=== PATIENT | male | born 1980 | race African-American/Black ===

== ENCOUNTER 2017-01-16 20:00 | Inpatient (IN) | payer OTHER ==
[~2017-01-16] VITALS: Ht 167.6 cm; Wt 82.8 kg
[~2017-01-16 20:00] MED LIST: ENAL2.5 PO; FURO20 PO; HYDR-2768 PO; INSU100V3 SC; MOTR200T PO; NOVORP2 SQ
[2017-01-16] MEDS ORDERED: SODIUM CHLOR 0.9% 1000 ML INJ 1,000 ML IV SCH ×2 (20:07→21:33)
[2017-01-16 20:08] VITALS: BP 190/89; PULSE 61; RESP 18; TEMP 98.6; O2SAT 100
[2017-01-16] MEDS ORDERED: ONDANSETRON HCL 4 MG/2 ML VIAL IVP ONE (20:15)
[2017-01-16] MEDS ORDERED: MORPHINE SULFATE 8 MG/ML INJ IV PUSH ONE (20:15)
[2017-01-16] MEDS ORDERED: SODIUM CHLOR 0.9% 1000 ML INJ 1,000 ML IV ONE ×2 (20:15→23:15)
[2017-01-16] MEDS ORDERED: SODIUM CHLORIDE 0.9% FLUSH 10 ML FLUSH IV FLUSH PRN ×2 (20:15→23:15)
[2017-01-16] MEDS ORDERED: METOCLOPRAMIDE HCL 10 MG/2 ML VIAL IV PUSH ONE (20:15)
--- NOTE | 2017-01-16 20:17 | PD ---
HPI Chief Complaint: GI Complaint Time Seen by Provider: 20:03 Travel History International Travel<30 days: No Contact w/Intl Traveler<30days: No Traveled to known affect area: No History of Present Illness HPI Patient is a 36-year-old male with a history of diabetes presents emergency Department with a 4-5 day history of nausea vomiting left lower quadrant abdominal pain. Patient states last emesis after he was found to be in DKA. Sugar was 300 according to EMS. Patient was given Phenergan approximately 6 hours ago at the [facility] [place] [facility], he did receive Zofran 4 mg IV in route. Both interventions were not helpful.. On arrival he is very diaphoretic and actively retching. There is some blood tinge in the emesis. Denies any fever denies any chest pain or shortness of breath. Patient incarcerated for 14 years. He adamantly denies ingesting anything. Symptoms are severe. Gradually worsening. PFSH Past Medical History Depression: Yes Diabetes: Yes Hypertension: Yes Social History Alcohol Use: No Tobacco Use: No Substance Use: No Allergies-Medications (Allergen,Severity, Reaction): Coded Allergies: Vasotec (Verified Allergy, Intermediate, DRY COUGH, 01/16/17) Reported Meds & Prescriptions Reported Meds & Active Scripts Active Ibuprofen 200 Mg Tab 400 Mg PO TID 7 Days Reported Humulin N U-100 Pen (Insulin Human Nph) Inj 20 SC HS Humulin N U-100 Pen (Insulin Human Nph) Inj 25 SC DAILY@0600 Novolin R (Insulin Human Regular) 100 Units/Ml Inj 0 SQ DIRECTED Lasix 20 Mg Tab (Furosemide) 20 Mg Tab 20 Mg PO DAILY Hctz (Hydrochlorothiazide) 25 Mg Tab 25 Mg PO DAILY Enalapril Maleate 2.5 Mg Tab 2.5 Mg PO DAILY Review of Systems Except as stated in HPI: all other systems reviewed are Neg Physical Exam Narrative GENERAL: Well-developed well-nourished, diaphoretic, actively retching. SKIN: Focused skin assessment warm/dry. HEAD: Atraumatic. Normocephalic. EYES: Pupils equal and round. No scleral icterus. No injection or drainage. ENT: No nasal bleeding or discharge. Mucous membranes pink and moist. NECK: Trachea midline. No JVD. CARDIOVASCULAR: Regular rate and rhythm. No murmur appreciated. RESPIRATORY: No accessory muscle use. Clear to auscultation. Breath sounds equal bilaterally. GASTROINTESTINAL: Abdomen soft, moderately tender in the left lower quadrant no rebound no percussive tenderness., nondistended. Hepatic and splenic margins not palpable. Abdomen is soft. MUSCULOSKELETAL: No obvious deformities. No clubbing. No cyanosis. No edema. NEUROLOGICAL: Awake and alert. No obvious cranial nerve deficits. Motor grossly within normal limits. Normal speech. PSYCHIATRIC: Appropriate mood and affect; insight and judgment normal. Data Data Last Documented VS Vital Signs Date Time Temp Pulse Resp B/P Pulse Ox O2 Delivery O2 Flow Rate FiO2 01/16/17 22:20 90 16 169/79 99 Room Air 01/16/17 20:08 98.6 Orders Complete Blood Count With Diff (01/16/17 20:07) Comprehensive Metabolic Panel (01/16/17 20:07) Lactic Acid (01/16/17 20:07) Prothrombin Time / Inr (Pt) (01/16/17 20:07) Act Partial Throm Time (Ptt) (01/16/17 20:07) Urinalysis - C+S If Indicated (01/16/17 20:07) Iv Access Insert/Monitor (01/16/17 20:07) Ecg Monitoring (01/16/17 20:07) Oximetry (01/16/17 20:07) Ondansetron Inj (Zofran Inj) (01/16/17 20:15) Sodium Chlor 0.9% 1000 Ml Inj (Ns 1000 M (01/16/17 20:07) Sodium Chloride 0.9% Flush (Ns Flush) (01/16/17 20:15) Electrocardiogram (01/16/17 20:07) Morphine Inj (Morphine Inj) (01/16/17 20:15) Metoclopramide Inj (Reglan Inj) (01/16/17 20:15) Beta Hydroxybutyrate (Acetone) (01/16/17 20:09) Blood Gas Venous (Vbg) (01/16/17 20:09) Sodium Chlor 0.9% 1000 Ml Inj (Ns 1000 M (01/16/17 20:15) Ct Abd/Pel W Iv Contrast(Rout) (01/16/17 20:16) Chest, Single Ap (01/16/17 ) Lipase (01/16/17 21:33) Public Address Servicer / Telemetry [email or web address] (01/16/17 21:33) ^ Insert Iv (01/16/17 21:33) Magnesium (Mg) (01/16/17 21:33) Phosphorus (Po4) (01/16/17 21:33) Sodium Chlor 0.9% 1000 Ml Inj (Ns 1000 M (01/16/17 21:33) Dext 5%-Nacl 0.9% 1000 Ml Inj (D5w-Ns 10 (01/16/17 21:33) Insulin Regular (Iv Infusion) (Novolin R (01/16/17 21:45) Potassium Chlor 40 Meq Premix (Kcl 40 Me (01/16/17 21:45) Potassium Chlor 40 Meq Premix (Kcl 40 Me (01/16/17 21:45) Potassium Chlor 20 Meq Premix (Kcl 20 Me (01/16/17 21:45) Potassium Chlor 20 Meq Premix (Kcl 20 Me (01/16/17 21:45) Potassium Chlor 20 Meq Premix (Kcl 20 Me (01/16/17 21:45) Potassium Chlor 20 Meq Premix (Kcl 20 Me (01/16/17 21:45) Potassium Chlor 20 Meq Premix (Kcl 20 Me (01/16/17 21:45) Potassium Chlor 20 Meq Premix (Kcl 20 Me (01/16/17 21:45) Sodium Bicarbonate 8.4% Inj (Sodium Bica (01/16/17 21:45) Sodium Bicarbonate 8.4% Inj (Sodium Bica (01/16/17 21:45) Sodium Phosphate Inj (Sodium Phosphate I (01/16/17 21:45) Hemoglobin (Hgb) A1c (01/16/17 21:33) Basic Metabolic Panel (Bmp) (01/17/17 02:33) Basic Metabolic Panel (Bmp) (01/17/17 08:33) Basic Metabolic Panel (Bmp) (01/17/17 14:33) Basic Metabolic Panel (Bmp) (01/17/17 20:33) Magnesium (Mg) (01/17/17 02:33) Magnesium (Mg) (01/17/17 08:33) Magnesium (Mg) (01/17/17 14:33) Magnesium (Mg) (01/17/17 20:33) Phosphorus (Po4) (01/17/17 02:33) Phosphorus (Po4) (01/17/17 08:33) Phosphorus (Po4) (01/17/17 14:33) Phosphorus (Po4) (01/17/17 20:33) Beta Hydroxybutyrate (Acetone) (01/17/17 08:33) Beta Hydroxybutyrate (Acetone) (01/17/17 20:33) Troponin I (01/16/17 21:36) Lorazepam Inj (Ativan Inj) (01/16/17 21:45) Iohexol 350 Inj (Omnipaque 350 Inj) (01/16/17 22:40) Admit Order (Ed Use Only) (01/16/17 ) Admit To Inpatient (01/16/17 ) Vital Signs (Adult) Q4H (01/16/17 23:04) Activity Oob With Assistance (01/16/17 23:04) Public Address Servicer / Telemetry .CONTINUOUS (01/16/17 23:04) Sodium Chlor 0.9% 1000 Ml Inj (Ns 1000 M (01/16/17 23:04) Sodium Chloride 0.9% Flush (Ns Flush) (01/16/17 23:15) Sodium Chloride 0.9% Flush (Ns Flush) (01/17/17 09:00) Ondansetron Inj (Zofran Inj) (01/16/17 23:15) Metoclopramide Inj (Reglan Inj) (01/16/17 23:15) Comprehensive Metabolic Panel (01/17/17 06:00) Complete Blood Count With Diff (01/17/17 06:00) Case Management Consult (01/16/17 23:04) Naloxone Inj (Narcan Inj) (01/16/17 23:15) Inpatient Certification (01/16/17 ) Labs Laboratory Tests Test 01/16/17 01/16/17 01/16/17 20:30 20:37 20:45 Urine Color LIGHT-YELLOW Urine Turbidity CLEAR Urine pH 5.5 Urine Specific [place] 1.031 Urine Protein 30 mg/dL Urine Glucose (UA) 1000 mg/dL Urine Ketones 150 mg/dL Urine Occult Blood SMALL Urine Nitrite NEG Urine Bilirubin NEG Urine Urobilinogen LESS THAN 2.0 MG/DL Urine Leukocyte Esterase NEG Urine RBC 5 /hpf Urine WBC 1 /hpf Urine Mucus FEW /lpf Microscopic Urinalysis Comment CULT NOT INDICATED Sodium Level 136 MEQ/L Potassium Level 3.7 MEQ/L Chloride Level 95 MEQ/L Carbon Dioxide Level 25.1 MEQ/L Anion Gap 16 MEQ/L Blood Urea Nitrogen 20 MG/DL Creatinine 1.38 MG/DL Estimat Glomerular Filtration 71 ML/MIN Rate Random Glucose 333 MG/DL Calcium Level 9.6 MG/DL Phosphorus Level 3.0 MG/DL Magnesium Level 1.7 MG/DL Total Bilirubin 1.8 MG/DL Aspartate Amino Transf 23 U/L (AST/SGOT) Alanine Aminotransferase 19 U/L (ALT/SGPT) Alkaline Phosphatase 75 U/L Troponin I LESS THAN 0.02 NG/ML Total Protein 8.0 GM/DL Albumin 3.9 GM/DL Lipase 42 U/L Blood Gas Puncture Site IV Blood Gas Patient Temperature 98.6 Venous Blood pH 7.33 Venous Blood Partial Pressure 48 mmHg CO2 Venous Blood Partial Pressure 23 mmHg O2 Venous Blood HCO3 24 mmol/L Venous Blood Oxygen Saturation 34 % Venous Blood Oxygen Content 7.1 Vol % Venous Blood Base Excess -1.0 mmol/L Oxygen Delivery Device ROOM AIR Blood Gas Inspired Oxygen 21 % White Blood Count 15.2 TH/MM3 Red Blood Count 4.71 MIL/MM3 Hemoglobin 14.1 GM/DL Hematocrit 41.7 % Mean Corpuscular Volume 88.5 FL Mean Corpuscular Hemoglobin 29.9 PG Mean Corpuscular Hemoglobin 33.8 % Concent Red Cell Distribution Width 13.1 % Platelet Count 216 TH/MM3 Mean Platelet Volume 8.6 FL Neutrophils (%) (Auto) 89.9 % Lymphocytes (%) (Auto) 5.9 % Monocytes (%) (Auto) 3.8 % Eosinophils (%) (Auto) 0.2 % Basophils (%) (Auto) 0.2 % Neutrophils # (Auto) 13.7 TH/MM3 Lymphocytes # (Auto) 0.9 TH/MM3 Monocytes # (Auto) 0.6 TH/MM3 Eosinophils # (Auto) 0.0 TH/MM3 Basophils # (Auto) 0.0 TH/MM3 CBC Comment DIFF FINAL Differential Comment Prothrombin Time 11.4 SEC Prothromb Time International 1.0 RATIO Ratio Activated Partial 23.9 SEC Thromboplast Time Lactic Acid Level 3.9 mmol/L B-Hydroxybutyrate 3.89 MMOL/L MDM Medical Decision Making Medical Screen Exam Complete: Yes Emergency Medical Condition: Yes Interpretation(s) EKG shows sinus bradycardia rate 58, intervals within normal limits. LVH criteria, no concerning ST-T changes. Borderline EKG. Differential Diagnosis Dehydration, DKA, acute abdomen, ischemic bowel disease, foreign body ingestion seems less likely. Narrative Course Patient was roomed in the emergency department, despite having Phenergan and Zofran he continues to retch. He was given Reglan and for the moment was more comfortable but again started to vomit. He was given Ativan and still is having vomiting through that. His labs are significant for metabolic acidosis with a small anion gap. His pH was 7.32. Patient was given 2 L normal saline. His beta hydroxybutyrate is somewhat elevated suggesting a mild DKA as well. The DKA protocol was ordered which I think is fairly conservative. CT examination was only for a mild colitis otherwise negative:: Last 24 hours Impressions Abdomen/Pelvis CT 01/16/172015 Signed Impressions: Service Date/Time: Monday, January 16, 2017 22:09 - CONCLUSION: 1. Mild mural thickening of large bowel most characteristic of a mild colitis. No obstruction. No significant free fluid. No free air. Osito Badillo MD Chest X-Ray 01/16/17 0000 Signed Impressions: Service Date/Time: Monday, January 16, 2017 21:11 - CONCLUSION: No acute disease. Osito Badillo MD Patient was discussed with Dr. Avilez for admission who is agreeable. She agrees with the DKA order set was very conservative and would like to recheck a chemistry now for possible floor admission the chemistry is repeated the patient 's anion gap is) Dr. Avilez has discontinued the DKA order set and the patient will be admitted for intractable nausea and vomiting. Procedures Procedure Narrative Aggregate critical care time was 35 minutes. Time to perform other separately billable procedures was not included in the critical care time. My time did not include minutes spent treating any other patients simultaneously or on activities that did not directly contribute to the patient's treatment. The services I provided to this patient were to treat and/or prevent clinically significant deterioration that could result in: , disability, organ failure. I provided critical care services requiring my management, as noted below: Chart data review, documentation time, medication orders and management, vital sign assessments/reviewing monitor data, ordering and reviewing lab tests, ordering and interpreting/reviewing x-rays and diagnostic studies, care of the patient and discussion of the patient with the admitting physicians. Diagnosis Primary Impression: DKA (diabetic ketoacidoses) Qualified Code: E10.10 - Diabetic ketoacidosis without coma associated with type 1 diabetes mellitus Additional Impressions: Lactic acidosis Dehydration Intractable nausea and vomiting Admitting Information Admitting Physician Requests: Admit Condition: Stable Omer Kumar MD January 16, 2017 20:17
[2017-01-16 20:59] LABS: BLOOD GAS VENOUS HCO3 24 mmol/L (22-26); BLOOD GAS VENOUS O2 CONTENT 7.1 Vol % (9.0-17.0); BLOOD GAS VENOUS O2 HGB SAT 34 % (70-76); BLOOD GAS VENOUS PCO2 48 mmHg (44-48); BLOOD GAS VENOUS pH 7.33 (7.360-7.400); TEMP CORR TO 98.6
[2017-01-16 21:00] LABS: BLOOD GAS VENOUS PO2 23 mmHg (35-40); CRITICAL VALUE YES; DRAW SITE IV; FIO2 21 %; OXYGEN DEVICE ROOM AIR; STAT YES
[2017-01-16 21:04] LABS: AUTOMATED NEUTROPHIL # 13.7 TH/MM3 (1.8-7.7); BASOPHIL % 0.2 % (0.0-2.0); EOSINOPHIL % 0.2 % (0.0-4.0); HEMATOCRIT 41.7 % (39.0-51.0); HEMO FLAGS DIFF FINAL; LYMPH % 5.9 % (9.0-44.0); LYMPHOCYTE # 0.9 TH/MM3 (1.0-4.8); MEAN CELL VOLUME 88.5 FL (80.0-100.0); MEAN CORPUSCULAR HEMOGLOBIN 29.9 PG (27.0-34.0); MEAN CORPUSCULAR HGB CONC 33.8 % (32.0-36.0); MONO % 3.8 % (0.0-8.0); NEUT % 89.9 % (16.0-70.0); PLATELET COUNT 216 TH/MM3 (150-450); RED BLOOD COUNT 4.71 MIL/MM3 (4.50-5.90); RED CELL DISTRIBUTION WIDTH 13.1 % (11.6-17.2); WHITE BLOOD COUNT 15.2 TH/MM3 (4.0-11.0)
[2017-01-16 21:15] LABS: BLOOD, URINE SMALL (NEG); COMMENT (UR) CULT NOT INDICATED; CULTURE IF INDICATED CULT NOT INDICATED; GLUCOSE,URINE 1000 mg/dL (NEG); KETONE, URINE 150 mg/dL (NEG); MUCUS URINE FEW /lpf (OCC); NITRITE,URINE NEG (NEG); PH, URINE 5.5 (5.0-8.5); URINE COLOR LIGHT-YELLOW (YELLW/STRAW)
[2017-01-16 21:26] LABS: ANION GAP 16 MEQ/L (5-15); AST (GOT) 23 U/L (15-37); BICARBONATE 25.1 MEQ/L (21.0-32.0); BLOOD UREA NITROGEN 20 MG/DL (7-18); CHLORIDE 95 MEQ/L (98-107); GLOMERULAR FILTRATION RATE 71 ML/MIN (>89); POTASSIUM 3.7 MEQ/L (3.5-5.1); SODIUM (NA) 136 MEQ/L (136-145)
[2017-01-16 21:29] LABS: ALKALINE PHOSPHATASE 75 U/L (45-117); ALT (GPT) 19 U/L (12-78); TOTAL BILIRUBIN ADULT 1.8 MG/DL (0.2-1.0)
[2017-01-16] MEDS ORDERED: DEXT 5%-NACL 0.9% 1000 ML INJ 1,000 ML IV SCH (21:33)
[2017-01-16] MEDS ORDERED: INSULIN REGULAR (IV INFUSION) 100 UNITS in SODIUM CHLORIDE 0.9% INJ 99 ML IV SCH (21:45)
[2017-01-16] MEDS ORDERED: SODIUM PHOSPHATE INJ 15 MMOL in SODIUM CHLORIDE 0.9% INJ 100 ML IV PRN (21:45)
[2017-01-16] MEDS ORDERED: POTASSIUM CHLOR 20 MEQ PREMIX 100 ML IV PRN ×6 (21:45)
[2017-01-16] MEDS ORDERED: SODIUM BICARBONATE 8.4% SOLN 50 MEQ/50 ML VIAL IV PRN ×2 (21:45)
[2017-01-16] MEDS ORDERED: POTASSIUM CHLOR 40 MEQ PREMIX 100 ML IV PRN ×2 (21:45)
[2017-01-16] MEDS ORDERED: LORazepam 2 MG/ML VIAL IV PUSH ONE (21:45)
[2017-01-16 21:57] LABS: APTT (PATIENT) 23.9 SEC (24.3-30.1); PROTHROMBIN TIME - PATIENT 11.4 SEC (9.8-11.6)
--- NOTE | 2017-01-16 22:09 | RADRPT ---
EXAM DATE/TIME: 01/16/2017 21:11 [facility] COMPARISON: No previous studies available for comparison. INDICATIONS : Chest pain. MEDICAL HISTORY : None. SURGICAL HISTORY : None. ENCOUNTER: Initial ACUITY: 1 day PAIN SCORE: 2/10 LOCATION: Bilateral chest FINDINGS: A single view of the chest demonstrates the lungs to be symmetrically aerated without evidence of mas s, infiltrate or effusion. The cardiomediastinal contours are unremarkable. Osseous structures are intact. CONCLUSION: No acute disease. Osito Badillo MD on January 16, 2017 at 22:06 Board Certified Radiologist. This report was verified electronically.
[2017-01-16 22:20] VITALS: BP 169/79; PULSE 90; RESP 16; O2SAT 99
[2017-01-16 22:33] LABS: MAGNESIUM 1.7 MG/DL (1.5-2.5)
[2017-01-16] MEDS ORDERED: IOHEXOL 350 MG/ML 10 ML VIAL (for RAD DIAG) IV ONE (22:40)
--- NOTE | 2017-01-16 22:40 | RADRPT ---
EXAM DATE/TIME: 01/16/2017 22:09 [facility] COMPARISON: No previous studies available for comparison. INDICATIONS : Lower left quadrant pain. Nausea and vomiting. IV CONTRAST: 96 cc Omnipaque 350 (iohexol) IV ORAL CONTRAST: No oral contrast ingested. RADIATION DOSE: 5.66 CTDIvol (mGy) MEDICAL HISTORY : Hypertension. Diabetes. SURGICAL HISTORY : None. ENCOUNTER: Initial ACUITY: 4 - 6 days PAIN SCALE: 7/10 LOCATION: Left lower quadrant TECHNIQUE: Volumetric scanning of the abdomen and pelvis was performed. Using automated exposure control and ad justment of the mA and/or kV according to patient size, radiation dose was kept as low as reasonably achievable to obtain optimal diagnostic quality images. FINDINGS: Lung bases are clear. No acute findings in the liver, spleen, adrenals, kidneys are pancreas. There i s some mild mural thickening of the colon less characteristic of a mild colitis. Moderate rectal cons tipation. Fat containing right inguinal hernia. No herniation of bowel. No bowel obstruction or free air. Small hiatal hernia. No significant free fluid. CONCLUSION: 1. Mild mural thickening of large bowel most characteristic of a mild colitis. No obstruction. No sig nificant free fluid. No free air. Osito Badillo MD on January 16, 2017 at 22:33 Board Certified Radiologist. This report was verified electronically.
[2017-01-16] MEDS ORDERED: METOCLOPRAMIDE HCL 10 MG/2 ML VIAL IV PUSH PRN (23:15)
[2017-01-16] MEDS ORDERED: NALOXONE HCL 0.4 MG/ML AMP IV PRN (23:15)
[2017-01-16 23:42] LABS: BICARBONATE 24.4 MEQ/L (21.0-32.0); POTASSIUM 4.3 MEQ/L (3.5-5.1)
[2017-01-16] MEDS: SODIUM CHLOR 0.9% 1000 ML INJ 1,000 ML IV SCH (23:42)
[2017-01-17] VITALS (9 sets, daily range): BP systolic 139–220; BP diastolic 62–93; PULSE 78–92; RESP 16–18; TEMP 98.2–98.9; O2SAT 96–100
[2017-01-17] MEDS ORDERED: ENALAPRILAT 2.5 MG/2 ML VIAL IV PUSH PRN (01:30)
[2017-01-17] MEDS: ONDANSETRON HCL 4 MG/2 ML VIAL IVP PRN ×2 (01:31→12:36)
[2017-01-17] MEDS: MORPHINE SULFATE 4 MG/ML INJ IV PUSH PRN ×2 (01:32→09:52)
[2017-01-17] MEDS: CIPROFLOXACIN 400 MG PREMIX 200 ML IV SCH ×2 (03:12→13:04)
[2017-01-17] MEDS: metroNIDAZOLE 500 MG INJ 100 ML IV SCH ×4 (03:12→20:00)
[2017-01-17] MEDS: SODIUM CHLOR 0.9% 1000 ML INJ 1,000 ML IV SCH ×4 (04:04→18:09)
[2017-01-17] MEDS ORDERED: DEXTROSE 50% IN WATER 50 ML VIAL(D50) IV PRN (05:15)
[2017-01-17] MEDS ORDERED: GLUCAGON 1 MG/ML VIAL OTHER PRN (05:15)
--- NOTE | 2017-01-17 05:15 | HHI.HP ---
[facility] Primary [facility] Physician No Primary Care Physician Admission Diagnosis Dehydration, Lactic acidosis, Colitis, Intractible N/V Diagnoses: Chief Complaint: nausea and vomiting Travel History International Travel<30 Days: No Contact w/Intl Traveler <30 Da: No Traveled to Known Affected Are: No History of Present Illness Written by Maryse Rodriguez, acting as scribe for Dr. June on 01/17/17 at 05:10. Mr. Eason is a 36-year-old male with a history of hypertension, diabetes mellitus , and depression who presented to the emergency room complaining of nausea and vomiting for about 4-5 days with left lower quadrant abdominal pain. He was [facility] Phenergan [facility] [place] [facility] and Zofran 4 mg IV in the ambulance en route to the ER but continued to vomit with hematemesis noted by the emergency room physician. Abdomen/pelvis CT in ER indicates colitis. The patient is seen in his hospital room. He complained that he had severe nausea and vomiting that was not relieved after two doses of phenergan at the [facility]: one p.o. and one i.m. He is currently feeling better but states he's been having left lower quadrant pain and noted hematemesis while he was experiencing nausea and vomiting. He states he's had intermittent left lower quadrant pain that is severe for > 1 year now and does not know what is causing it. He also complains of a small mass in left testicle area. . Review of Systems Except as stated in HPI: all other systems reviewed are Neg Past Family Social History Past Medical History Hypertension Diabetes mellitus Depression . Past Surgical History Denies . Reported Medications Reported Meds & Active Scripts Active Ibuprofen 200 Mg Tab 400 Mg PO TID 7 Days Reported Humulin N U-100 Pen (Insulin Human Nph) Inj 20 SC HS Humulin N U-100 Pen (Insulin Human Nph) Inj 25 SC DAILY@0600 Novolin R (Insulin Human Regular) 100 Units/Ml Inj 0 SQ DIRECTED Lasix 20 Mg Tab (Furosemide) 20 Mg Tab 20 Mg PO DAILY Hctz (Hydrochlorothiazide) 25 Mg Tab 25 Mg PO DAILY Enalapril Maleate 2.5 Mg Tab 2.5 Mg PO DAILY . Allergies: Coded Allergies: Vasotec (Verified Allergy, Intermediate, DRY COUGH, 01/16/17) Active Ordered Medications Current Medications Ondansetron HCl 4 mg 4 mg ONCE ONCE IVP Last administered on 01/16/17 20:21; Start 01/16/17 at 20:15; Stop 01/16/17 at 20:16; Status DC Sodium Chloride (NS 1000 ml Inj) 1,000 ml @ 1,000 mls/hr Q1H IV Last administered on 01/16/17 20:44; Start 01/16/17 at 20:07; Stop 01/16/17 at 21:06 ; Status DC Sodium Chloride (NS Flush) 2 ml UNSCH PRN IV FLUSH FLUSH AFTER USING IV ACCESS ; Start 01/16/17 at 20:15; Stop 01/16/17 at 23:05; Status DC Morphine Sulfate (Morphine Inj) 5 mg ONCE ONCE IV PUSH Last administered on 22:45; Start 01/16/17 at 20:15; Stop 01/16/17 at 20:16; Status DC Metoclopramide HCl 10 mg 10 mg ONCE ONCE IV PUSH Last administered on 20:21; Start 01/16/17 at 20:15; Stop 01/16/17 at 20:16; Status DC Sodium Chloride 1,000 ml @ 999 mls/hr BOLUS ONCE IV Last administered on 01/16 20:44; Start 01/16/17 at 20:15; Stop 01/16/17 at 21:15; Status DC Sodium Chloride 1,000 ml @ 250 mls/hr Q4H IV Last administered on 01/16/17 22 :39; Start 01/16/17 at 21:33; Stop 01/16/17 at 23:05; Status DC Dextrose/Sodium Chloride 1,000 ml @ 200 mls/hr Q5H IV ; Start 01/16/17 at 21:33 ; Stop 01/16/17 at 23:05; Status DC Insulin Human Regular 100 units/ Sodium Chloride 100 ml @ 0 mls/hr TITRATE IV Last administered on 01/16/17 22:39; Start 01/16/17 at 21:45; Stop 01/16/17 at 23:05; Status DC Potassium Chloride 100 ml @ 100 mls/hr Q1H PRN IV SEE LABEL COMMENTS; Start at 21:45; Stop 01/16/17 at 23:05; Status DC Potassium Chloride 100 ml @ 50 mls/hr Q2H PRN IV SEE LABEL COMMENTS; Start at 21:45; Stop 01/16/17 at 23:05; Status DC Potassium Chloride 100 ml @ 100 mls/hr Q1H PRN IV SEE LABEL COMMENTS; Start at 21:45; Stop 01/16/17 at 23:05; Status DC Potassium Chloride 100 ml @ 100 mls/hr Q1H PRN IV SEE LABEL COMMENTS; Start at 21:45; Stop 01/16/17 at 23:05; Status DC Potassium Chloride 100 ml @ 50 mls/hr Q2H PRN IV SEE LABEL COMMENTS; Start at 21:45; Stop 01/16/17 at 23:05; Status DC Potassium Chloride 100 ml @ 50 mls/hr Q2H PRN IV SEE LABEL COMMENTS; Start at 21:45; Stop 01/16/17 at 23:05; Status DC Potassium Chloride 100 ml @ 50 mls/hr Q2H PRN IV SEE LABEL COMMENTS Last administered on 01/16/17t 22:40; Start 01/16/17 at 21:45; Stop 01/16/17 at 23:06 ; Status DC Potassium Chloride (KCl 20 Meq Premix Inj) 100 ml @ 50 mls/hr Q2H PRN IV SEE LABEL COMMENTS; Start 01/16/17 at 21:45; Stop 01/16/17 at 23:06; Status DC Sodium Bicarbonate (Sodium Bicarbonate 8.4% Inj) 100 meq UNSCH PRN IV SEE LABEL COMMENTS; Start 01/16/17 at 21:45; Stop 01/16/17 at 23:06; Status DC Sodium Bicarbonate 50 meq 50 meq UNSCH PRN IV SEE LABEL COMMENTS; Start at 21:45; Stop 01/16/17 at 23:06; Status DC Sodium Phosphate/ Sodium Chloride (Sodium Phosphate Inj/NS Inj) 105 ml @ 25 mls /hr UNSCH PRN IV SEE LABEL COMMENTS; Start 01/16/17 at 21:45; Stop 01/16/17 at 23:06; Status DC Lorazepam (Ativan Inj) 1 mg ONCE ONCE IV PUSH Last administered on 01/16/17 21:48; Start 01/16/17 at 21:45; Stop 01/16/17 at 21:46; Status DC Iohexol 96 ml 96 ml STK-MED ONCE IV Last administered on 01/16/17 22:40; Start 01/16/17 at 22:40; Stop 01/16/17 at 22:41; Status DC Sodium Chloride (NS 1000 ml Inj) 1,000 ml @ 200 mls/hr Q5H IV Last administered on 01/16/17 23:42; Start 01/16/17 at 23:04 Sodium Chloride (NS Flush) 2 ml UNSCH PRN IV FLUSH FLUSH AFTER USING IV ACCESS ; Start 01/16/17 at 23:15 Sodium Chloride (NS Flush) 2 ml BID IV FLUSH ; Start 01/17/17 at 09:00 Ondansetron HCl (Zofran Inj) 4 mg Q6H PRN IVP NAUSEA OR VOMITING Last administered on 01/17/17 01:31; Start 01/16/17 at 23:15 Metoclopramide HCl (Reglan Inj) 5 mg Q6H PRN IV PUSH NAUSEA OR VOMITING; Start 01/16/17 at 23:15 Naloxone HCl 0.4 mg 0.4 mg UNSCH PRN IV SEE LABEL COMMENTS; Start 01/16/17 at 23:15 Sodium Chloride (NS 1000 ml Inj) 1,000 ml @ 999 mls/hr BOLUS ONCE IV Last administered on 01/16/17 23:43; Start 01/16/17 at 23:15; Stop 01/17/17 at 00:15 ; Status DC Morphine Sulfate (Morphine Inj) 2 mg Q3H PRN IV PUSH pain >5 Last administered on 01/17/17 01:32; Start 01/17/17 at 01:30 Enalaprilat 2.5 mg 2.5 mg Q6H PRN IV PUSH bp>140/90; Start 01/17/17 at 01:30 Ciprofloxacin/ Dextrose 200 ml @ 200 mls/hr Q12H IV Last administered on 03:12; Start 01/17/17 at 02:00 Metronidazole (Flagyl 500 Mg Inj) 100 ml @ 100 mls/hr Q6H IV Last administered on 01/17/17t 03:12; Start 01/17/17 at 02:00 Dextrose (D50w (Vial) Inj) 50 ml UNSCH PRN IV HYPOGLYCEMIA-SEE COMMENTS; Start 01/17/17 at 05:15 Glucagon (Glucagon Inj) 1 mg UNSCH PRN OTHER HYPOGLYCEMIA-SEE COMMENTS; Start 01/17/17 at 05:15 Insulin Aspart (NovoLOG SUPPLEMENTAL SCALE) 1 ACHS SLIDING SCALE SQ ; Start at 07:00 . Family History Family history of heart disease and diabetes mellitus . Social History Tobacco: Denies; former smoker - quit in 2014 Alcohol: Denies Illicit Drugs: Denies . Physical Exam Vital Signs Vital Signs Date Time Temp Pulse Resp B/P Pulse Ox O2 Delivery O2 Flow Rate FiO2 01/17/17 02:30 92 01/17/17 02:05 144/63 01/17/17 01:16 89 01/17/17 01:00 98.9 87 16 202/82 100 220/93 01/16/17 22:20 90 16 169/79 99 Room Air 01/16/17 20:08 98.6 61 18 190/89 100 Physical Exam GENERAL: This is a well-nourished, well-developed patient, in no apparent distress. SKIN: No rashes, ecchymoses or lesions. Cool and dry. HEAD: Atraumatic. Normocephalic. EYES: No scleral icterus. No injection or drainage. ENT: Nose without bleeding, purulent drainage. NECK: Trachea midline. No JVD or lymphadenopathy. CARDIOVASCULAR: Regular rate and rhythm without murmurs, gallops, or rubs. RESPIRATORY: Clear to auscultation. Breath sounds equal bilaterally. No wheezes , rales, or rhonchi. GASTROINTESTINAL: Abdomen soft, non-tender, nondistended. No guarding. : left testicle with small, soft area thought to be a mass by patient; seems more c/w a vein. MUSCULOSKELETAL: Extremities without clubbing, cyanosis, or edema. No calf tenderness. NEUROLOGICAL: Awake and alert. Motor and sensory grossly within normal limits. Normal speech. . Laboratory Laboratory Tests Test 01/16/17 01/16/17 01/16/17 01/16/17 20:30 20:37 20:45 23:10 Urine Color LIGHT-YELLOW Urine Turbidity CLEAR Urine pH 5.5 Urine Specific Roberta 1.031 Urine Protein 30 Urine Glucose (UA) 1000 Urine Ketones 150 Urine Occult Blood SMALL Urine Nitrite NEG Urine Bilirubin NEG Urine Urobilinogen LESS THAN 2.0 Urine Leukocyte Esterase NEG Urine RBC 5 Urine WBC 1 Urine Mucus FEW Microscopic Urinalysis Comment CULT NOT INDICATED Sodium Level 136 137 Potassium Level 3.7 4.3 Chloride Level 95 100 Carbon Dioxide Level 25.1 24.4 Anion Gap 16 13 Blood Urea Nitrogen 20 20 Creatinine 1.38 1.23 Estimat Glomerular Filtration 71 81 Rate Random Glucose 333 281 Calcium Level 9.6 8.7 Phosphorus Level 3.0 Magnesium Level 1.7 Total Bilirubin 1.8 Aspartate Amino Transf 23 (AST/SGOT) Alanine Aminotransferase 19 (ALT/SGPT) Alkaline Phosphatase 75 Troponin I LESS THAN 0.02 Total Protein 8.0 Albumin 3.9 Lipase 42 Blood Gas Puncture Site IV Blood Gas Patient Temperature 98.6 Venous Blood pH 7.33 Venous Blood Partial Pressure 48 CO2 Venous Blood Partial Pressure 23 O2 Venous Blood HCO3 24 Venous Blood Oxygen Saturation 34 Venous Blood Oxygen Content 7.1 Venous Blood Base Excess -1.0 Oxygen Delivery Device ROOM AIR Blood Gas Inspired Oxygen 21 White Blood Count 15.2 Red Blood Count 4.71 Hemoglobin 14.1 Hematocrit 41.7 Mean Corpuscular Volume 88.5 Mean Corpuscular Hemoglobin 29.9 Mean Corpuscular Hemoglobin 33.8 Concent Red Cell Distribution Width 13.1 Platelet Count 216 Mean Platelet Volume 8.6 Neutrophils (%) (Auto) 89.9 Lymphocytes (%) (Auto) 5.9 Monocytes (%) (Auto) 3.8 Eosinophils (%) (Auto) 0.2 Basophils (%) (Auto) 0.2 Neutrophils # (Auto) 13.7 Lymphocytes # (Auto) 0.9 Monocytes # (Auto) 0.6 Eosinophils # (Auto) 0.0 Basophils # (Auto) 0.0 CBC Comment DIFF FINAL Differential Comment Prothrombin Time 11.4 Prothromb Time International 1.0 Ratio Activated Partial 23.9 Thromboplast Time Lactic Acid Level 3.9 2.8 B-Hydroxybutyrate 3.89 Result Diagram: 01/16/17204401/16/17 2310 Imaging Last Impressions Abdomen/Pelvis CT 01/16/172015 Signed Impressions: Service Date/Time: Katharina, January 16, 2017 22:09 - CONCLUSION: 1. Mild mural thickening of large bowel most characteristic of a mild colitis. No obstruction. No significant free fluid. No free air. Osito Badillo MD Chest X-Ray 01/16/17 0000 Signed Impressions: Service Date/Time: Monday, January 16, 2017 21:11 - CONCLUSION: No acute disease. Osito Badillo MD . Assessment and Plan Assessment and Plan Mr. Eason is a 36-year-old male who presented to the emergency room complaining of nausea and vomiting for about 4-5 days with left lower quadrant abdominal pain. Abdomen/pelvis CT in ER indicated colitis the patient is admitted for medical management. Colitis/Left lower quadrant pain/nausea and vomiting - Abdomen/pelvis CT showed mild mural thickening of large bowel most consistent of a mild colitis with no obstruction, no significant free fluid, and no free air. - Morphine 2 mg IV push every 3 hours as needed for pain - Metronidazole 500 mg IV every 6 hours - Ciprofloxacin 400 milligrams IV every 12 hours - IV fluid hydration - Zofran 4 mg IV push every 6 hours as needed for nausea and vomiting - Reglan 5 mg IV push every 6 hours as needed for nausea and vomiting - Consult gastroenterology Leukocytosis - possibly stress induced vs. hemoconcentration - Initial white blood count 15.2 with neutrophilia noted - Recheck CBC in a.m. and follow trends Hypertension, uncontrolled - Enalapril 2.5 mg IV push every 6 hours as needed for blood pressure greater than 140/90 - Hold home hctz until patients dehydration resolves - Check vital signs every 4 hours - Monitor trends in blood pressure and adjust treatment as needed Acute renal insufficiency likely secondary to dehydration - BUN 20, creatinine 1.38, estimated GFR 71 - BUN remains 28, creatinine down to 1.23, estimated GFR up to 81 on recheck - Continue IV fluid hydration with normal saline at 200 cc per hour - Recheck BMP in a.m. and follow trends in renal indices - Avoid nephrotoxins Lactic acidosis - Lactic acid 3.9 on admission and 2.8 on recheck - Continue IV fluid hydration - Continue to monitor lactic acid level - currently trending downward DVT prophylaxis - SCDs This note was transcribed by mike [Maryse Rodriguez]. I, Dr. Justo June personally performed the history, physical exam, and medical decision making; and confirmed the accuracy of the information in the transcribed note. Authenticated by Dr. Justo June on 01/17/17 at 05:10. Discussed Condition With ER physician, RN, and patient . Physician Certification 2 Midnight Certification Type: Admission for Inpatient Services Order for Inpatient Services The services are ordered in accordance with Medicare regulations or non- Medicare payer requirements, as applicable. In the case of services not specified as inpatient-only, they are appropriately provided as inpatient services in accordance with the 2-midnight benchmark. Estimated LOS (days): 3 days is the estimated time the patient will need to remain in the hospital, assuming treatment plan goals are met and no additional complications. Post-Hospital Plan: Other (specify) (residential facility) Maryse Rodriguez January 17, 2017 05:15 Justo June MD Feb 12, 2017 12:32
[2017-01-17 05:18] LABS: BICARBONATE 19.1 MEQ/L (21.0-32.0); MAGNESIUM 1.8 MG/DL (1.5-2.5)
[2017-01-17] MEDS: INSULIN ASPART SUPPLEMENTAL SCALE SQ SCH ×4 (05:30→21:00)
[2017-01-17] MEDS: PANTOPRAZOLE SODIUM 40 MG VIAL IV PUSH SCH ×2 (05:30→17:40)
[2017-01-17 06:57] LABS: AUTOMATED NEUTROPHIL # 13.9 TH/MM3 (1.8-7.7); BASOPHIL % 0.3 % (0.0-2.0); HEMATOCRIT 39.5 % (39.0-51.0); HEMO FLAGS DIFF FINAL; LYMPHOCYTE # 1.1 TH/MM3 (1.0-4.8); MEAN CORPUSCULAR HEMOGLOBIN 30.2 PG (27.0-34.0); MEAN CORPUSCULAR HGB CONC 33.5 % (32.0-36.0); MONO % 6.1 % (0.0-8.0); NEUT % 86.6 % (16.0-70.0); PLATELET COUNT 204 TH/MM3 (150-450); RED BLOOD COUNT 4.39 MIL/MM3 (4.50-5.90); WHITE BLOOD COUNT 16.1 TH/MM3 (4.0-11.0)
[2017-01-17 07:34] LABS: ALKALINE PHOSPHATASE 67 U/L (45-117); ALT (GPT) 17 U/L (12-78); ANION GAP 17 MEQ/L (5-15); AST (GOT) 18 U/L (15-37); BICARBONATE 21.5 MEQ/L (21.0-32.0); BLOOD UREA NITROGEN 22 MG/DL (7-18); CHLORIDE 99 MEQ/L (98-107); GLOMERULAR FILTRATION RATE 67 ML/MIN (>89); POTASSIUM 4.6 MEQ/L (3.5-5.1); SODIUM (NA) 137 MEQ/L (136-145); TOTAL BILIRUBIN ADULT 1.5 MG/DL (0.2-1.0)
[2017-01-17] MEDS: SODIUM CHLORIDE 0.9% FLUSH 10 ML FLUSH IV FLUSH SCH ×2 (09:42→21:00)
[2017-01-17 10:42] LABS: ANION GAP 17 MEQ/L (5-15); BICARBONATE 21.3 MEQ/L (21.0-32.0); BLOOD UREA NITROGEN 22 MG/DL (7-18); CHLORIDE 98 MEQ/L (98-107); GLOMERULAR FILTRATION RATE 67 ML/MIN (>89); POTASSIUM 4.2 MEQ/L (3.5-5.1); SODIUM (NA) 136 MEQ/L (136-145)
[2017-01-17 10:44] LABS: BETA-HYDROXYBUTYRATE 3.86 MMOL/L (0.00-0.39)
--- NOTE | 2017-01-17 10:44 | EKG ---
Date Performed: 01/16/2017 Time Performed: 20:25:39 PTAGE: 36 years EKG: SINUS BRADYCARDIA POSSIBLE LEFT ATRIAL ENLARGEMENT INCOMPLETE RIGHT BUNDLE BRANCH BLOCK BOR DERLINE ECG NO PREVIOUS TRACING DOCTOR: Oren Dodd Interpretating Date/Time 01/17/2017 10:42:15
[2017-01-17 10:50] LABS: HEMOGLOBIN A1a 0.7 %; HEMOGLOBIN A1b 2.3 %; HEMOGLOBIN Ao 77.5 %; HEMOGLOBIN LA1C 3.3 %; HEMOGLOBIN P3 4.6 %
[2017-01-17 12:05] LABS: BICARBONATE 23.3 MEQ/L (21.0-32.0); POTASSIUM 4.6 MEQ/L (3.5-5.1)
[2017-01-17] MEDS ORDERED: INSULIN ASPART 1,000 UNITS/10 ML VIAL SQ ONE (16:00)
[2017-01-17 16:16] LABS: BICARBONATE 22.1 MEQ/L (21.0-32.0); POTASSIUM 4.3 MEQ/L (3.5-5.1)
--- NOTE | 2017-01-17 17:02 | PD.CONS ---
HPI History of Present Illness This is a 36 year old [male] inmate who presented to ER with n/v, LLQ pain, hematemesis. he was found to have BG 426. Onset was 3 y ago and n/v with hematemesis and LLQ pain are intermittent but seems worse lately. He says his emesis has bright red adn maroon blood. The LLQ pain is constant but exacerbated by "mystery meat" offered frequently for meals in residential. He says when the pain is worse he notices firmness in that area. Last BM was 2 d ago and normal per pt. Says he has hernia in groin area on right side, that is reducible. He says he was here 2-3 y ago with same symptoms and told he had DKA , per EMR he was here 09/2014 with DKA after having n/v and fevers, no hematemesis . Denies constipation, tarry stool, blood in stool, diarrhea, fever , sick contacts, NSAID use, recent travel. PFSH Past Medical History Hypertension Diabetes mellitus Depression . Past Surgical History Denies . Coded Allergies: Vasotec (Verified Allergy, Intermediate, DRY COUGH, 01/16/17) Medications Current Medications Medications (Trade) Dose Ordered Sig/Christofer Route PRN Reason Start Time Stop Time Status Last Admin Dose Admin Sodium Chloride (NS 1000 ml Inj) 1,000 ml @ 200 mls/hr Q5H IV 01/16/17 23:04 01/17/17 14:59 Sodium Chloride (NS Flush) 2 ml UNSCH PRN IV FLUSH FLUSH AFTER USING IV ACCESS 01/16/17 23:15 Sodium Chloride (NS Flush) 2 ml BID IV FLUSH 01/17/17 09:00 01/17/17 09:42 Ondansetron HCl (Zofran Inj) 4 mg Q6H PRN IVP NAUSEA OR VOMITING 01/16/17 23:15 01/17/17 12:36 Metoclopramide HCl (Reglan Inj) 5 mg Q6H PRN IV PUSH NAUSEA OR VOMITING 01/16/17 23:15 Naloxone HCl (Narcan Inj) 0.4 mg UNSCH PRN IV SEE LABEL COMMENTS 01/16/17 23:15 Morphine Sulfate (Morphine Inj) 2 mg Q3H PRN IV PUSH pain >5 01/17/17 01:30 01/17/17 09:52 Enalaprilat 2.5 mg 2.5 mg Q6H PRN IV PUSH bp>140/90 01/17/17 01:30 Ciprofloxacin/ Dextrose 200 ml @ 200 mls/hr Q12H IV 01/17/17 02:00 01/17/17 13:04 Metronidazole (Flagyl 500 Mg Inj) 100 ml @ 100 mls/hr Q6H IV 01/17/17 02:00 01/17/17 14:57 Dextrose (D50w (Vial) Inj) 50 ml UNSCH PRN IV HYPOGLYCEMIA-SEE COMMENTS 01/17/17 05:15 Glucagon (Glucagon Inj) 1 mg UNSCH PRN OTHER HYPOGLYCEMIA-SEE COMMENTS 01/17/17 05:15 Pantoprazole Sodium (Protonix Inj) 40 mg Q12H IV PUSH 01/17/17 05:15 01/17/17 05:30 Family History Family history of heart disease and diabetes mellitus . Social History Tobacco: Denies; former smoker - quit in 2014 Alcohol: Denies Illicit Drugs: Denies . Review of Systems Constitutional: DENIES: Fever Eyes: DENIES: Blurred vision Ears, nose, mouth, throat: DENIES: Hearing loss Respiratory: DENIES: Cough Cardiovascular: DENIES: Chest pain Gastrointestinal: COMPLAINS OF: Abdominal pain, Nausea, Vomiting, Hematemesis, DENIES: Black stools, Bloody stools, Constipation, Diarrhea, Swelling of Abdomen Genitourinary: DENIES: Hematuria Musculoskeletal: DENIES: Muscle aches Integumentary: DENIES: Abnormal pigmentation Hematologic/lymphatic: DENIES: Bruising Neurologic: DENIES: Abnormal gait Psychiatric: DENIES: Confusion GI Exam Vitals I&O Vital Signs Date Time Temp Pulse Resp B/P Pulse Ox O2 Delivery O2 Flow Rate FiO2 01/17/17 12:00 98.7 84 18 143/62 96 01/17/17 08:00 98.3 80 18 143/68 98 01/17/17 04:00 98.7 86 16 139/68 98 01/17/17 02:30 92 01/17/17 02:05 144/63 01/17/17 01:16 89 01/17/17 01:00 98.9 87 16 202/82 100 220/93 01/16/17 22:20 90 16 169/79 99 Room Air 01/16/17 20:08 98.6 61 18 190/89 100 I/O 01/16/17 01/16/17 01/16/17 01/17/17 01/17/17 01/17/17 07:00 15:00 23:00 07:00 15:00 23:00 Intake Total 1628 ml 239 ml Output Total 850 ml Balance 778 ml 239 ml Intake Oral 660 ml IV Total 968 ml 239 ml Output Urine Total 850 ml # Bowel Movements 0 Imaging Last Impressions Abdomen/Pelvis CT 01/16/172015 Signed Impressions: Service Date/Time: Monday, January 16, 2017 22:09 - CONCLUSION: 1. Mild mural thickening of large bowel most characteristic of a mild colitis. No obstruction. No significant free fluid. No free air. Osito Badillo MD Chest X-Ray 01/16/17 0000 Signed Impressions: Service Date/Time: Monday, January 16, 2017 21:11 - CONCLUSION: No acute disease. Osito Badillo MD Laboratory Test 01/16/17 01/16/17 01/16/17 01/16/17 20:30 20:37 20:45 23:10 Urine Color LIGHT-YELLOW Urine Turbidity CLEAR Urine pH 5.5 Urine Specific Rentz 1.031 Urine Protein 30 mg/dL Urine Glucose (UA) 1000 mg/dL Urine Ketones 150 mg/dL Urine Occult Blood SMALL Urine Nitrite NEG Urine Bilirubin NEG Urine Urobilinogen LESS THAN 2.0 MG/DL Urine Leukocyte Esterase NEG Urine RBC 5 /hpf Urine WBC 1 /hpf Urine Mucus FEW /lpf Microscopic Urinalysis Comment CULT NOT INDICATED Sodium Level 136 MEQ/L 137 MEQ/L Potassium Level 3.7 MEQ/L 4.3 MEQ/L Chloride Level 95 MEQ/L 100 MEQ/L Carbon Dioxide Level 25.1 MEQ/L 24.4 MEQ/L Anion Gap 16 MEQ/L 13 MEQ/L Blood Urea Nitrogen 20 MG/DL 20 MG/DL Creatinine 1.38 MG/DL 1.23 MG/DL Estimat Glomerular Filtration 71 ML/MIN 81 ML/MIN Rate Random Glucose 333 MG/DL 281 MG/DL Calcium Level 9.6 MG/DL 8.7 MG/DL Phosphorus Level 3.0 MG/DL Magnesium Level 1.7 MG/DL Total Bilirubin 1.8 MG/DL Aspartate Amino Transf 23 U/L (AST/SGOT) Alanine Aminotransferase 19 U/L (ALT/SGPT) Alkaline Phosphatase 75 U/L Troponin I LESS THAN 0.02 NG/ML Total Protein 8.0 GM/DL Albumin 3.9 GM/DL Lipase 42 U/L Blood Gas Puncture Site IV Blood Gas Patient Temperature 98.6 Venous Blood pH 7.33 Venous Blood Partial Pressure 48 mmHg CO2 Venous Blood Partial Pressure 23 mmHg O2 Venous Blood HCO3 24 mmol/L Venous Blood Oxygen Saturation 34 % Venous Blood Oxygen Content 7.1 Vol % Venous Blood Base Excess -1.0 mmol/L Oxygen Delivery Device ROOM AIR Blood Gas Inspired Oxygen 21 % White Blood Count 15.2 TH/MM3 Red Blood Count 4.71 MIL/MM3 Hemoglobin 14.1 GM/DL Hematocrit 41.7 % Mean Corpuscular Volume 88.5 FL Mean Corpuscular Hemoglobin 29.9 PG Mean Corpuscular Hemoglobin 33.8 % Concent Red Cell Distribution Width 13.1 % Platelet Count 216 TH/MM3 Mean Platelet Volume 8.6 FL Neutrophils (%) (Auto) 89.9 % Lymphocytes (%) (Auto) 5.9 % Monocytes (%) (Auto) 3.8 % Eosinophils (%) (Auto) 0.2 % Basophils (%) (Auto) 0.2 % Neutrophils # (Auto) 13.7 TH/MM3 Lymphocytes # (Auto) 0.9 TH/MM3 Monocytes # (Auto) 0.6 TH/MM3 Eosinophils # (Auto) 0.0 TH/MM3 Basophils # (Auto) 0.0 TH/MM3 CBC Comment DIFF FINAL Differential Comment Prothrombin Time 11.4 SEC Prothromb Time International 1.0 RATIO Ratio Activated Partial 23.9 SEC Thromboplast Time Lactic Acid Level 3.9 mmol/L 2.8 mmol/L B-Hydroxybutyrate 3.89 MMOL/L Test 01/17/17 01/17/17 01/17/17 01/17/17 04:50 06:37 08:15 09:37 Sodium Level 136 MEQ/L 137 MEQ/L 136 MEQ/L Potassium Level 5.0 MEQ/L 4.6 MEQ/L 4.2 MEQ/L Chloride Level 103 MEQ/L 99 MEQ/L 98 MEQ/L Carbon Dioxide Level 19.1 MEQ/L 21.5 MEQ/L 21.3 MEQ/L Anion Gap 14 MEQ/L 17 MEQ/L 17 MEQ/L Blood Urea Nitrogen 21 MG/DL 22 MG/DL 22 MG/DL Creatinine 1.24 MG/DL 1.45 MG/DL 1.44 MG/DL Estimat Glomerular Filtration 80 ML/MIN 67 ML/MIN 67 ML/MIN Rate Random Glucose 296 MG/DL 387 MG/DL 291 MG/DL Lactic Acid Level 2.2 mmol/L 2.5 mmol/L 2.1 mmol/L Calcium Level 8.7 MG/DL 8.4 MG/DL 8.8 MG/DL Phosphorus Level 4.4 MG/DL 4.3 MG/DL Magnesium Level 1.8 MG/DL 2.0 MG/DL White Blood Count 16.1 TH/MM3 Red Blood Count 4.39 MIL/MM3 Hemoglobin 13.2 GM/DL Hematocrit 39.5 % Mean Corpuscular Volume 90.0 FL Mean Corpuscular Hemoglobin 30.2 PG Mean Corpuscular Hemoglobin 33.5 % Concent Red Cell Distribution Width 13.0 % Platelet Count 204 TH/MM3 Mean Platelet Volume 8.6 FL Neutrophils (%) (Auto) 86.6 % Lymphocytes (%) (Auto) 7.0 % Monocytes (%) (Auto) 6.1 % Eosinophils (%) (Auto) 0.0 % Basophils (%) (Auto) 0.3 % Neutrophils # (Auto) 13.9 TH/MM3 Lymphocytes # (Auto) 1.1 TH/MM3 Monocytes # (Auto) 1.0 TH/MM3 Eosinophils # (Auto) 0.0 TH/MM3 Basophils # (Auto) 0.0 TH/MM3 CBC Comment DIFF FINAL Differential Comment Total Bilirubin 1.5 MG/DL Aspartate Amino Transf 18 U/L (AST/SGOT) Alanine Aminotransferase 17 U/L (ALT/SGPT) Alkaline Phosphatase 67 U/L Total Protein 6.7 GM/DL Albumin 3.2 GM/DL Hemoglobin A1c 10.7 % B-Hydroxybutyrate 3.86 MMOL/L Test 01/17/17 01/17/17 11:18 15:00 Sodium Level 135 MEQ/L 134 MEQ/L Potassium Level 4.6 MEQ/L 4.3 MEQ/L Chloride Level 97 MEQ/L 99 MEQ/L Carbon Dioxide Level 23.3 MEQ/L 22.1 MEQ/L Anion Gap 15 MEQ/L 13 MEQ/L Blood Urea Nitrogen 22 MG/DL 23 MG/DL Creatinine 1.46 MG/DL 1.50 MG/DL Estimat Glomerular Filtration 66 ML/MIN 64 ML/MIN Rate Random Glucose 420 MG/DL 462 MG/DL Calcium Level 8.6 MG/DL 8.5 MG/DL Phosphorus Level 2.5 MG/DL Magnesium Level 2.0 MG/DL Physical Examination HEENT: EOMI; normocephalic; atraumatic; no jaundice. CHEST: CTA CARDIAC: RRR ABDOMEN: Soft, nondistended, mild LLQ TTP; no hepatosplenomegaly; bowel sounds are present in all four quadrants. EXTREMITIES: No clubbing, cyanosis, or edema. SKIN: Normal; no rash; no jaundice. MECHANICAL ARTIST: No focal deficits; alert and oriented times three. Assessment and Plan Plan ASSESSMENT - N/V, hematemesis, abd pain - pt also has LLQ pain, hematemesis. CT 01-16-17--> 1. Mild mural thickening of large bowel most characteristic of a mild colitis. No obstruction. No significant free fluid. No free air. he has had these symptoms for 3 years, no diarrhea. will do EGD/colon tomorrow so long as his BG is under control. - elevated blood glucose - His BG is 462, up from 281 on admission. PLAN - EGD/colonoscopy tomorrow - obtain consents - GoLytely - clears today - NPO after midnight - further recommendations based on results above This pt seen by myself and Dr Amaya and this note is written on his behalf Bel Moulton January 17, 2017 17:02
[2017-01-17] MEDS ORDERED: INSULIN HUMAN REGULAR 1,000 UNITS/10 ML VIAL SQ ONE (17:30)
--- NOTE | 2017-01-17 17:51 | RADRPT ---
EXAM DATE/TIME: 01/17/2017 16:23 [place] COMPARISON: No previous studies available for comparison. INDICATIONS : Left testicle palpable lump. MEDICAL HISTORY : Hypertension. Diabetes. Depression. SURGICAL HISTORY : None. ENCOUNTER: Initial ACUITY: 2 months PAIN SCORE: 0/10 LOCATION: Bilateral testicles. MEASUREMENTS: RIGHT TESTICLE: 4.1 x 3.5 x 2.2cm LEFT TESTICLE: 2.7 x 2.8 x 2.2cm FINDINGS: RIGHT TESTICLE: Homogeneous echotexture without intra or extratesticular mass. Blood flow is symmetric and within no rmal limits. No hydrocele or varicocele. Epididymis is within normal limits. LEFT TESTICLE: Homogeneous echotexture without intra or extratesticular mass. Blood flow is symmetric and within no rmal limits. No hydrocele or varicocele. Epididymis is within normal limits. SCROTUM: Within normal limits. CONCLUSION: 1. Unremarkable ultrasound examination of the testicles. Xavi Zapata MD on January 17, 2017 at 17:49 Board Certified Radiologist. This report was verified electronically.
[2017-01-17] MEDS ORDERED: PEG (High)/E-LYTE SOLN 4000 ML BTL PO ONE (18:00)
[2017-01-17] MEDS ORDERED: INSULIN DETEMIR 100 UNITS/ML VIAL SQ SCH (21:00)
[2017-01-17 21:20] LABS: BETA-HYDROXYBUTYRATE 0.35 MMOL/L (0.00-0.39); BICARBONATE 30.9 MEQ/L (21.0-32.0); MAGNESIUM 1.9 MG/DL (1.5-2.5); POTASSIUM 3.4 MEQ/L (3.5-5.1)
[2017-01-18] VITALS (9 sets, daily range): BP systolic 141–173; BP diastolic 74–87; PULSE 68–83; RESP 16–18; TEMP 97.3–99.5; O2SAT 96–99
[2017-01-18] MEDS: CIPROFLOXACIN 400 MG PREMIX 200 ML IV SCH ×2 (02:00→14:00)
[2017-01-18] MEDS: metroNIDAZOLE 500 MG INJ 100 ML IV SCH ×4 (02:00→21:32)
[2017-01-18] MEDS: PANTOPRAZOLE SODIUM 40 MG VIAL IV PUSH SCH ×2 (06:36→17:56)
[2017-01-18] MEDS: SODIUM CHLOR 0.9% 1000 ML INJ 1,000 ML IV SCH (06:37)
[2017-01-18] MEDS: INSULIN ASPART SUPPLEMENTAL SCALE SQ SCH ×3 (07:00→21:40)
[2017-01-18] MEDS: INSULIN ASPART 1,000 UNITS/10 ML VIAL SQ SCH ×2 (08:00→18:07)
[2017-01-18] MEDS: amLODIPine BESYLATE 5 MG TAB PO SCH (09:37)
[2017-01-18] MEDS: SODIUM CHLORIDE 0.9% FLUSH 10 ML FLUSH IV FLUSH SCH (09:37)
--- NOTE | 2017-01-18 10:04 | HHI.PR ---
Subjective Remarks Follow-up for colitis. Patient is currently doing well. Denies any chest pain , shortness of breath, fever or chills. He still has left lower quadrant abdominal pain. Objective Vitals Vital Signs Date Time Temp Pulse Resp B/P Pulse Ox O2 Delivery O2 Flow Rate FiO2 01/18/17 08:14 98.3 78 16 173/87 96 01/18/17 04:00 98.5 68 16 170/81 97 01/18/17 00:00 98.1 71 18 158/80 99 01/17/17 20:00 98.6 78 16 159/75 97 01/17/17 16:00 98.2 80 18 155/73 100 01/17/17 12:00 98.7 84 18 143/62 96 I/O 01/17/17 01/17/17 01/17/17 01/18/17 01/18/17 01/18/17 07:00 15:00 23:00 07:00 15:00 23:00 Intake Total 1628 ml 1199 ml 960 ml 0 ml Output Total 850 ml 1100 ml Balance 778 ml 99 ml 960 ml 0 ml Intake Oral 660 ml 960 ml 960 ml 0 ml IV Total 968 ml 239 ml Output Urine Total 850 ml 1100 ml # Voids 2 2 # Bowel Movements 0 0 1 3 Result Diagram: 01/17/1737 01/17/172020 Imaging Last Impressions Scrotum Ultrasound 01/17/17 0000 Signed Impressions: Service Date/Time: Tuesday, January 17, 2017 16:23 - CONCLUSION: 1. Unremarkable ultrasound examination of the testicles. Xavi Zapata MD Abdomen/Pelvis CT 01/16/172015 Signed Impressions: Service Date/Time: Monday, January 16, 2017 22:09 - CONCLUSION: 1. Mild mural thickening of large bowel most characteristic of a mild colitis. No obstruction. No significant free fluid. No free air. Osito Badillo MD Chest X-Ray 01/16/17 0000 Signed Impressions: Service Date/Time: Monday, January 16, 2017 21:11 - CONCLUSION: No acute disease. Osito Badillo MD Objective Remarks GENERAL: Alert, oriented 3, NAD. SKIN: Warm and dry. HEAD: Normocephalic. EYES: No scleral icterus. No injection or drainage. NECK: Supple, trachea midline. No JVD or lymphadenopathy. CARDIOVASCULAR: Regular rate and rhythm without murmurs, gallops, or rubs. RESPIRATORY: Breath sounds equal bilaterally. No accessory muscle use. GASTROINTESTINAL: Abdomen soft, non-tender, nondistended. MUSCULOSKELETAL: No cyanosis, or edema. BACK: Nontender without obvious deformity. No CVA tenderness. Procedures None A/P Assessment and Plan Mr. Eason is a 36-year-old male who presented to the emergency room complaining of nausea and vomiting for about 4-5 days with left lower quadrant abdominal pain. Abdomen/pelvis CT in ER indicated colitis the patient is admitted for medical management. Colitis/Left lower quadrant pain/nausea and vomiting - Abdomen/pelvis CT showed mild mural thickening of large bowel most consistent of a mild colitis with no obstruction, no significant free fluid, and no free air. - Morphine 2 mg IV push every 3 hours as needed for pain - Metronidazole 500 mg IV every 6 hours - Ciprofloxacin 400 milligrams IV every 12 hours - IV fluid hydration - Zofran 4 mg IV push every 6 hours as needed for nausea and vomiting - Reglan 5 mg IV push every 6 hours as needed for nausea and vomiting - Consulted gastroenterology. Probable EGD/Colonoscopy today. - Lactic acid improved from 3.9 on admission to 2.1 on 01/17/2017. Diabetes mellitus - Increase Levemir from 10 units daily at bedtime to 12 units daily at bedtime. - Continue insulin 6 units aspart 3 times a day before meals as well as sliding scale insulin. Hypertension - Patient is allergic to Vasotec. We'll avoid a centimeters. - Start amlodipine 5 mg daily, hydralazine 10 mg 3 times a day. Chronic kidney disease - creatinine is around 1.4. - Avoid nephrotoxins DVT prophylaxis - SCDKaylin Bernardo DO January 18, 2017 10:04
[2017-01-18] MEDS ORDERED: PROPOFOL 200 MG/20 ML AMP IV ONE (12:42)
[2017-01-18] MEDS ORDERED: GLUCAGON 1 MG/ML VIAL IV ONE (13:14)
--- NOTE | 2017-01-18 13:32 | HHI.GIFU ---
Subjective Remarks Immediate postop note: EGD with biopsy and colonoscopy Indication: hematemesis, blood in stool Meds: MAC Findings: mild gastritis, hiatal hernia. GERD. Normal colonoscopy Impression: GERD. Hematemesis due to gerd Normal colonoscopy Rec: Stable for discharge. Regular diet. PPI daily Objective Vitals I&O Vital Signs Date Time Temp Pulse Resp B/P Pulse Ox O2 Delivery O2 Flow Rate FiO2 01/18/17 09:30 97.3 78 16 173/87 99 01/18/17 08:14 98.3 78 16 173/87 96 01/18/17 04:00 98.5 68 16 170/81 97 01/18/17 00:00 98.1 71 18 158/80 99 01/17/17 20:00 98.6 78 16 159/75 97 01/17/17 16:00 98.2 80 18 155/73 100 I/O 01/17/17 01/17/17 01/17/17 01/18/17 01/18/17 01/18/17 07:00 15:00 23:00 07:00 15:00 23:00 Intake Total 1628 ml 1199 ml 960 ml 0 ml Output Total 850 ml 1100 ml Balance 778 ml 99 ml 960 ml 0 ml Intake Oral 660 ml 960 ml 960 ml 0 ml IV Total 968 ml 239 ml Output Urine Total 850 ml 1100 ml # Voids 2 2 # Bowel Movements 0 0 1 3 Laboratory Laboratory Tests Test 01/17/17 01/17/17 15:00 20:21 Sodium Level 134 140 Potassium Level 4.3 3.4 Chloride Level 99 101 Carbon Dioxide Level 22.1 30.9 Anion Gap 13 8 Blood Urea Nitrogen 23 19 Creatinine 1.50 1.42 Estimat Glomerular Filtration 64 68 Rate Random Glucose 462 170 Calcium Level 8.5 8.2 Phosphorus Level 2.5 2.4 Magnesium Level 2.0 1.9 B-Hydroxybutyrate 0.35 Physical Exam HEENT: Pupils round and reactive to light; normocephalic; atraumatic; no jaundice. Throat is clear. NECK: Neck is supple, no JVD, no lymphadenopathy. CHEST: Chest is clear to auscultation and percussion. CARDIAC: Regular rate and rhythm with no murmur gallop or rubs. ABDOMEN: Soft, nondistended, nontender; no hepatosplenomegaly; bowel sounds are present in all four quadrants. EXTREMITIES: No clubbing, cyanosis, or edema. SKIN: Normal; no rash; no jaundice. CHAIR CANER: No focal deficits; alert and oriented times three. Assessment and Plan Plan ASSESSMENT GERD caused hematemesis. Normal colonoscopy PLAN Stable for discharge once other medical problems are controlled. PPI BID Darwin Amaya MD January 18, 2017 13:32
[2017-01-18] MEDS: hydrALAZINE HCL 10 MG TAB PO SCH ×2 (17:56→21:34)
[2017-01-18] MEDS ORDERED: INSULIN DETEMIR 100 UNITS/ML VIAL SQ SCH (21:00)
[2017-01-18] MEDS: HEPARIN SODIUM - SQ 10,000 UNITS/ML VIAL SQ SCH (21:31)
[2017-01-18] MEDS: MORPHINE SULFATE 4 MG/ML INJ IV PUSH PRN (21:32)
[2017-01-19] MEDS: metroNIDAZOLE 500 MG INJ 100 ML IV SCH ×2 (02:30→08:18)
[2017-01-19] MEDS: CIPROFLOXACIN 400 MG PREMIX 200 ML IV SCH (02:31)
[2017-01-19 04:15] VITALS: BP 183/87; PULSE 72; RESP 16; TEMP 98; O2SAT 97
[2017-01-19] MEDS: hydrALAZINE HCL 10 MG TAB PO SCH (06:09)
[2017-01-19] MEDS: PANTOPRAZOLE SODIUM 40 MG VIAL IV PUSH SCH (06:10)
[2017-01-19] MEDS: INSULIN ASPART SUPPLEMENTAL SCALE SQ SCH ×2 (06:48→11:00)
[2017-01-19 07:47] VITALS: BP 173/88; PULSE 75; RESP 18; TEMP 98.6; O2SAT 98
[2017-01-19] MEDS: INSULIN ASPART 1,000 UNITS/10 ML VIAL SQ SCH (08:00)
[2017-01-19] MEDS: HEPARIN SODIUM - SQ 10,000 UNITS/ML VIAL SQ SCH (08:19)
[2017-01-19] MEDS: amLODIPine BESYLATE 5 MG TAB PO SCH (08:19)
[2017-01-19] MEDS ORDERED: AMLO10TA2 PO (08:55)
[2017-01-19] MEDS ORDERED: METR-1 PO (08:55)
[2017-01-19] MEDS ORDERED: CIPR-9 PO (08:55)
--- NOTE | 2017-01-19 08:56 | HHI.DS ---
Discharge Summary Admission Date January 16, 2017 at 23:06 Discharge Date: January 19, 2017 Admitting Diagnosis Dehydration, Lactic acidosis, Colitis, Intractible N/V (1) Colitis ICD Code: K52.9 Diagnosis: Principal (2) GI bleed ICD Code: K92.2 Diagnosis: Principal Procedures 01/18/2017 Esophagogastroduodenoscopy with biopsy and colonoscopy IMPRESSION 1. GERD 2. Hematemesis most likely due to the GERD. 3. Normal colonoscopy Brief History - From Admission Mr. Eason is a 36-year-old male with a history of hypertension, diabetes mellitus , and depression who presented to the emergency room complaining of nausea and vomiting for about 4-5 days with left lower quadrant abdominal pain. He was given Phenergan [facility] and Zofran 4 mg IV in the ambulance en route to the ER but continued to vomit with hematemesis noted by the emergency room physician. Abdomen/pelvis CT in ER indicates colitis. The patient is seen in his hospital room. He complained that he had severe nausea and vomiting that was not relieved after two doses of phenergan at the [facility]: one p.o. and one i.m. He is currently feeling better but states he's been having left lower quadrant pain and noted hematemesis while he was experiencing nausea and vomiting. He states he's had intermittent left lower quadrant pain that is severe for > 1 year now and does not know what is causing it. He also complains of a small mass in left testicle area. . CBC/BMP: 01/17/17 0637 01/17/172020 Significant Findings Laboratory Tests Test 01/16/17 01/16/17 01/16/17 01/16/17 20:30 20:37 20:45 23:10 Urine Protein 30 mg/dL (NEG-TRACE) Urine Glucose (UA) 1000 mg/dL (NEG) Urine Ketones 150 mg/dL (NEG) Urine Occult Blood SMALL (NEG) Urine RBC 5 /hpf (0-3) Urine Mucus FEW /lpf (OCC) Chloride Level 95 MEQ/L (98-107) Anion Gap 16 MEQ/L (5-15) Blood Urea Nitrogen 20 MG/DL (7-18) 20 MG/DL (7-18) Creatinine 1.38 MG/DL (0.60-1.30) Estimat Glomerular Filtration 71 ML/MIN (>89) 81 ML/MIN (>89) Rate Random Glucose 333 MG/DL 281 MG/DL (74-106) (74-106) Total Bilirubin 1.8 MG/DL (0.2-1.0) Troponin I LESS THAN 0.02 NG/ML (0.02-0.05) Lipase 42 U/L (73-393) Venous Blood pH 7.33 (7.360-7.400) Venous Blood Partial Pressure 23 mmHg (35-40) O2 Venous Blood Oxygen Saturation 34 % (70-76) Venous Blood Oxygen Content 7.1 Vol % (9.0-17.0) White Blood Count 15.2 TH/MM3 (4.0-11.0) Neutrophils (%) (Auto) 89.9 % (16.0-70.0) Lymphocytes (%) (Auto) 5.9 % (9.0-44.0) Neutrophils # (Auto) 13.7 TH/MM3 (1.8-7.7) Lymphocytes # (Auto) 0.9 TH/MM3 (1.0-4.8) Activated Partial 23.9 SEC Thromboplast Time (24.3-30.1) Lactic Acid Level 3.9 mmol/L 2.8 mmol/L (0.4-2.0) (0.4-2.0) B-Hydroxybutyrate 3.89 MMOL/L (0.00-0.39) Test 01/17/17 01/17/17 01/17/17 01/17/17 04:50 06:37 08:15 09:37 Carbon Dioxide Level 19.1 MEQ/L (21.0-32.0) Blood Urea Nitrogen 21 MG/DL (7-18) 22 MG/DL (7-18) 22 MG/DL (7-18) Estimat Glomerular Filtration 80 ML/MIN (>89) 67 ML/MIN (>89) 67 ML/MIN (>89) Rate Random Glucose 296 MG/DL 387 MG/DL 291 MG/DL (74-106) (74-106) (74-106) Lactic Acid Level 2.2 mmol/L 2.5 mmol/L 2.1 mmol/L (0.4-2.0) (0.4-2.0) (0.4-2.0) White Blood Count 16.1 TH/MM3 (4.0-11.0) Red Blood Count 4.39 MIL/MM3 (4.50-5.90) Neutrophils (%) (Auto) 86.6 % (16.0-70.0) Lymphocytes (%) (Auto) 7.0 % (9.0-44.0) Neutrophils # (Auto) 13.9 TH/MM3 (1.8-7.7) Monocytes # (Auto) 1.0 TH/MM3 (0-0.9) Anion Gap 17 MEQ/L (5-15) 17 MEQ/L (5-15) Creatinine 1.45 MG/DL 1.44 MG/DL (0.60-1.30) (0.60-1.30) Calcium Level 8.4 MG/DL (8.5-10.1) Total Bilirubin 1.5 MG/DL (0.2-1.0) Albumin 3.2 GM/DL (3.4-5.0) Hemoglobin A1c 10.7 % (4.3-6.0) B-Hydroxybutyrate 3.86 MMOL/L (0.00-0.39) Test 01/17/17 01/17/17 01/17/17 11:18 15:00 20:21 Sodium Level 135 MEQ/L 134 MEQ/L (136-145) (136-145) Chloride Level 97 MEQ/L (98-107) Blood Urea Nitrogen 22 MG/DL (7-18) 23 MG/DL (7-18) 19 MG/DL (7-18) Creatinine 1.46 MG/DL 1.50 MG/DL 1.42 MG/DL (0.60-1.30) (0.60-1.30) (0.60-1.30) Estimat Glomerular Filtration 66 ML/MIN (>89) 64 ML/MIN (>89) 68 ML/MIN (>89) Rate Random Glucose 420 MG/DL 462 MG/DL 170 MG/DL (74-106) (74-106) (74-106) Potassium Level 3.4 MEQ/L (3.5-5.1) Calcium Level 8.2 MG/DL (8.5-10.1) Phosphorus Level 2.4 MG/DL (2.5-4.9) Imaging Last Impressions Scrotum Ultrasound 01/17/17 0000 Signed Impressions: Service Date/Time: Tuesday, January 17, 2017 16:23 - CONCLUSION: 1. Unremarkable ultrasound examination of the testicles. Xavi Zapata MD Abdomen/Pelvis CT 01/16/17 2016 Signed Impressions: Service Date/Time: Monday, January 16, 2017 22:09 - CONCLUSION: 1. Mild mural thickening of large bowel most characteristic of a mild colitis. No obstruction. No significant free fluid. No free air. Osito Badillo MD Chest X-Ray 01/16/17 0000 Signed Impressions: Service Date/Time: Monday, January 16, 2017 21:11 - CONCLUSION: No acute disease. Osito Badillo MD PE at Discharge GENERAL: Alert, oriented 3, NAD. SKIN: Warm and dry. HEAD: Normocephalic. EYES: No scleral icterus. No injection or drainage. NECK: Supple, trachea midline. No JVD or lymphadenopathy. CARDIOVASCULAR: Regular rate and rhythm without murmurs, gallops, or rubs. RESPIRATORY: Breath sounds equal bilaterally. No accessory muscle use. GASTROINTESTINAL: Abdomen soft, non-tender, nondistended. MUSCULOSKELETAL: No cyanosis, or edema. BACK: Nontender without obvious deformity. No CVA tenderness. Pt update on day of discharge Patient is doing well. He still has some left lower quadrant abdominal pain. No fever, chills. GI cleared for discharge. Hospital Course Mr. Eason is a 36-year-old male who presented to the emergency room complaining of nausea and vomiting for about 4-5 days with left lower quadrant abdominal pain. Abdomen/pelvis CT in ER indicated colitis the patient is admitted for medical management. Colitis/Left lower quadrant pain/nausea and vomiting - Abdomen/pelvis CT showed mild mural thickening of large bowel most consistent of a mild colitis with no obstruction, no significant free fluid, and no free air. - Morphine 2 mg IV push every 3 hours as needed for pain while in the hospital. - Metronidazole 500 mg IV every 6 hours - Ciprofloxacin 400 milligrams IV every 12 hours - IV fluid hydration - Zofran 4 mg IV push every 6 hours as needed for nausea and vomiting - Reglan 5 mg IV push every 6 hours as needed for nausea and vomiting - Consulted gastroenterology. Probable EGD/Colonoscopy today. - Lactic acid improved from 3.9 on admission to 2.1 on 01/17/2017. Diabetes mellitus - Increase Levemir from 10 units daily at bedtime to 12 units daily at bedtime. - Continue insulin 6 units aspart 3 times a day before meals as well as sliding scale insulin. - Continue outpatient regimen on discharge. Patient states his blood glucose is well controlled at the [facility]. Hypertension - Patient is allergic to Vasotec. We'll avoid a centimeters. - Continue Enalapril on discharge. Increased amlodipine to 10mg Qday. Chronic kidney disease - creatinine is around 1.4. - Avoid nephrotoxins Pt Condition on Discharge: Good Discharge Disposition: Dis to [facility] [employer] Discharge Time: > 30 minutes Discharge Instructions DIET: Follow Instructions for: Diabetic Diet Activities you can perform: Regular-No Restrictions Follow up Referrals: PCP Follow-up - 1 Week New Medications: Amlodipine (Amlodipine) 10 Mg Tab 10 MG PO DAILY Blood Pressure Management #30 Ref 0 TAB Ciprofloxacin (Cipro) 500 Mg Tab 500 MG PO BID Infection #14 Ref 0 TAB Metronidazole (Flagyl) 500 Mg Tab 500 MG PO QID Infection #28 Ref 0 TAB Pantoprazole (Protonix) 40 Mg Tab 40 MG PO BID Ulcer Prevention #60 Ref 0 TAB Continued Medications: Enalapril Maleate (Enalapril Maleate) 2.5 Mg Tab 2.5 MG PO DAILY TAB Furosemide (Lasix 20 Mg Tab) 20 Mg Tab 20 MG PO DAILY TAB Hydrochlorothiazide (Hctz) 25 Mg Tab 25 MG PO DAILY TAB Insulin Human Nph (Humulin N U-100 Pen) Inj 25 SC DAILY@0600 INJ Insulin Human Nph (Humulin N U-100 Pen) Inj 20 SC HS INJ Insulin Human Regular (Novolin R) 100 Units/Ml Inj 0 SQ DIRECTED #10 ML Discontinued Medications: Ibuprofen (Ibuprofen) 200 Mg Tab 400 MG PO TID inflammation Days 7 TAB Kaylin James DO January 19, 2017 08:56
[2017-01-19] MEDS ORDERED: PROT40TA PO (09:09)
--- NOTE | 2017-01-19 11:04 | MR ---
cc: DARWIN AMAYA AHMED DATE 01/18/2017 PROCEDURE Esophagogastroduodenoscopy with biopsy and colonoscopy INDICATION Hematemesis and blood in the stool and abnormal thickening of the colon CT scan. REFERRING PHYSICIAN Dr. Erika Ewing PROCEDURE After informed consent was obtained, the patient was taken to the Endo Unit. He was turned onto his left side down and he was sedated by the Anesthesia Service. After adequate sedation was achieved, the Pentax video gastroscope was inserted in the oropharynx and advanced through the esophagus, stomach and duodenum. It was the slowly withdrawn examining the mucosa surface carefully. A biopsy was taken from the gastric antrum for histology. A retroflexed exam was performed in the fundus and cardia. The scope was then straightened and pulled through the esophagus and the procedure was terminated. A colonoscopy was then performed using the Pentex video colonoscope. After a normal examination, the scope was inserted into the anal canal and advanced with difficulty to the cecum. The patient was turned on to his right side during the exam to facilitate passage to the cecum. The scope was then withdrawn slowly examining the mucosal surfaces carefully. No abnormalities were identified. A retroflexed examination was performed in the rectum and was normal. The scope was then removed and the procedure was terminated. He tolerated the procedure well and was returned to the recovery area in good condition. FINDINGS 1. The esophagus showed distal GERD and that is probably the cause for the bleeding. 2. There was a small hiatal hernia. 3. There was mild gastritis and a biopsy was obtained. 4. Duodenum was normal. 5. The cecum was normal. 6. The colon was normal. 7. The rectum was normal. IMPRESSION 1. GERD 2. Hematemesis most likely due to the GERD. 3. Normal colonoscopy RECOMMENDATIONS 1. Resume a regular diet as appropriate for the blood sugar. 2. Proton pump inhibitor should be given daily. 3. The patient should be ready for discharge once his blood sugar is well-controlled. Darwin Amaya MD HHS/DJL /1:36 PM /10:55 AM
== END 2017-01-19 13:00 | DRG 391 ==
LOC: NEPC 20:00 → NEDA 23:06 → N06B 01-17 00:47
PROVIDERS: ADMIT Hospitalist; ATTEND Hospitalist
PROC: 0DB68ZX Excision of Stomach, Via Natural or Artificial Opening Endoscopic, Diagnostic (ICD-10-PCS; principal; 2017-01-18 11:30)
PROC: 0DJD8ZZ Inspection of Lower Intestinal Tract, Via Natural or Artificial Opening Endoscopic (ICD-10-PCS; 2017-01-18 11:30)
DX: K52.9 Noninfective gastroenteritis and colitis, unspecified (principal); E10.10 Type 1 diabetes mellitus with ketoacidosis without coma; K92.0 Hematemesis; E10.22 Type 1 diabetes mellitus with diabetic chronic kidney disease; K44.9 Diaphragmatic hernia without obstruction or gangrene; E86.0 Dehydration; K21.9 Gastro-esophageal reflux disease without esophagitis; F32.9 Major depressive disorder, single episode, unspecified; I12.9 Hypertensive chronic kidney disease with stage 1 through stage 4 chronic kidney disease, or unspecified chronic kidney disease; N18.9 Chronic kidney disease, unspecified; Z87.891 Personal history of nicotine dependence; Z79.4 Long term (current) use of insulin
CPT/HCPCS: 71010; 74177; 76870; 76937; 80048; 80053; 81001; 82010; 82805; 82948; 83036; 83605; 83690; 83735; 84100; 84484; 85025; 85610; 85730; 88305; 88312; 93005; 93975; 96374; 96375; C9113; J0744; J1610; J1644; J1815; J1817; J2060; J2270; J2405; J2765; J3480; J7030; Q9967